=== PATIENT | female | born 1975 | race Caucasian/White ===

== ENCOUNTER 2021-03-22 03:21 | Inpatient (IN) | payer OTHER ==
[~2021-03-22] VITALS: Ht 160 cm; Wt 175.5 kg
[~2021-03-22 03:21] MED LIST: ASPIRIN CHEWABL81 MG PO; AUGMENTIN 875-1 EACH PO; BACITRACIN TOP; BACTRIM DS TAB1 EACH PO; CEFUROXIME500 MG PO; CLEOCIN HCL300 MG PO; CLINDAMYCIN HC300 MG PO; COUMADIN 5MG TAB5 MG PO; DOXYCYCLINE HY100 M2 PO; ELIQUIS 5 MG TAB5 MG PO; FEOSOL325 MG PO; GLUCOPHAGE 500500 MG PO; IMDUR ER TAB 3030 MG PO; IRON325 M1 PO; LASIX40 MG PO; LOPRESSOR 25 MG25 MG PO; LOPRESSOR 50 MG50 MG PO; PROVERA10 MG PO; SILVADENE20 GM TOP; VITAMIN C 500500 MG PO; WARFARIN SODIUM5 MG PO; ZAROXOLYN/DIULO5 MG PO
[2021-03-22 04:27] LABS: HEMOGLOBIN 12.6 gm/dl (12.3-15.3); RED BLOOD COUNT 4.15 M/UL (4.00-5.10); WHITE BLOOD COUNT 9.9 K/UL (4.5-11.0)
[2021-03-22 04:42] LABS: BUN/CREATININE RATIO 12 (0-10)
[2021-03-22] MEDS ORDERED: WARFARIN SODIUM3 MG PO (09:23)
[2021-03-23 06:18] LABS: HEMOGLOBIN 11.9 gm/dl (12.3-15.3); RED BLOOD COUNT 3.84 M/UL (4.00-5.10); WHITE BLOOD COUNT 10.2 K/UL (4.5-11.0)
[2021-03-24 03:04] LABS: HEMOGLOBIN 11.6 gm/dl (12.3-15.3); RED BLOOD COUNT 3.7 M/UL (4.00-5.10); WHITE BLOOD COUNT 8.2 K/UL (4.5-11.0)
[2021-03-25 04:55] LABS: HEMOGLOBIN 11.5 gm/dl (12.3-15.3); RED BLOOD COUNT 3.84 M/UL (4.00-5.10)
[2021-03-25 05:17] LABS: BUN/CREATININE RATIO 13 (0-10)
[2021-03-26 03:33] LABS: HEMOGLOBIN 11.2 gm/dl (12.3-15.3); RED BLOOD COUNT 3.59 M/UL (4.00-5.10)
[2021-03-26 03:39] LABS: WHITE BLOOD COUNT 6.2 K/UL (4.5-11.0)
[2021-03-26 04:18] LABS: BUN/CREATININE RATIO 12 (0-10)
[2021-03-26] MEDS ORDERED: DILTIAZEM 24HR120 M1 PO (14:21)
[2021-03-26] MEDS ORDERED: DIGOXIN125 MCG PO (14:21)
== END 2021-03-26 17:23 | disposition home or self-care (01) | DRG 291 ==
LOC: ER1 03:21 → CDU 06:41 → PROG CARE 06:41
PROVIDERS: Family Medicine; Internal Medicine; ADMIT Internal Medicine
PROC: B24BZZ4 Ultrasonography of Heart with Aorta, Transesophageal (ICD-10-PCS; principal; 2021-03-22)
DX: I11.0 Hypertensive heart disease with heart failure (principal); J96.01 Acute respiratory failure with hypoxia; J96.02 Acute respiratory failure with hypercapnia; J18.9 Pneumonia, unspecified organism; Z20.822 Contact with and (suspected) exposure to COVID-19; L03.116 Cellulitis of left lower limb; L03.115 Cellulitis of right lower limb; E87.3 Alkalosis; N39.0 Urinary tract infection, site not specified; I48.92 Unspecified atrial flutter; I48.21 Permanent atrial fibrillation; Z68.44 Body mass index [BMI] 60.0-69.9, adult; E66.01 Morbid (severe) obesity due to excess calories; I50.33 Acute on chronic diastolic (congestive) heart failure; I48.0 Paroxysmal atrial fibrillation; E78.5 Hyperlipidemia, unspecified; G47.33 Obstructive sleep apnea (adult) (pediatric); I34.0 Nonrheumatic mitral (valve) insufficiency; I27.20 Pulmonary hypertension, unspecified; K76.0 Fatty (change of) liver, not elsewhere classified; E11.9 Type 2 diabetes mellitus without complications; Z79.01 Long term (current) use of anticoagulants; Z86.711 Personal history of pulmonary embolism; Z86.718 Personal history of other venous thrombosis and embolism; Z80.1 Family history of malignant neoplasm of trachea, bronchus and lung; Z84.89 Family history of other specified conditions; Z88.1 Allergy status to other antibiotic agents; Z82.49 Family history of ischemic heart disease and other diseases of the circulatory system; Z82.3 Family history of stroke; Z83.3 Family history of diabetes mellitus
CPT/HCPCS: ECHO; 36415; 36600; 71045; 74150; 76705; 80048; 80053; 80202; 81001; 82550; 82553; 82803; 82962; 83036; 83735; 83874; 83880; 84439; 84443; 84484; 84703; 85025; 85027; 85379; 85610; 86140; 93005; 93306; 94640; 94660; 94664; 94760; 96365; 96372; 96374; 96375; 96376; 99285; G0378; J1160; J1335; J1650; J1940; J2543; J3370; J7070; U0002

== ENCOUNTER 2021-12-26 23:12 | Emergency (ER) | payer OTHER ==
[~2021-12-26 23:12] MED LIST changes: +DIGOXIN125 MCG PO; +DILTIAZEM 24HR120 M1 PO; +WARFARIN SODIUM3 MG PO
== END 2021-12-27 01:23 | disposition home or self-care (01) ==
LOC: ER1 23:12
DX: S81.812A Laceration without foreign body, left lower leg, initial encounter (principal); Z86.711 Personal history of pulmonary embolism; Z88.1 Allergy status to other antibiotic agents; W01.10XA Fall on same level from slipping, tripping and stumbling with subsequent striking against unspecified object, initial encounter
CPT/HCPCS: 12004; 99282

== ENCOUNTER 2022-01-02 12:04 | Emergency (ER) | payer OTHER ==
[2022-01-02 12:35] LABS: HEMOGLOBIN 13.2 gm/dl (12.3-15.3); RED BLOOD COUNT 4.3 M/UL (4.00-5.10); WHITE BLOOD COUNT 10.2 K/UL (4.5-11.0)
[2022-01-02 12:53] LABS: BUN/CREATININE RATIO 27 (0-10)
== END 2022-01-02 21:00 | disposition short-term general hospital (02) ==
LOC: ER1 12:04
PROVIDERS: Emergency Medicine
DX: I63.311 Cerebral infarction due to thrombosis of right middle cerebral artery (principal); E66.01 Morbid (severe) obesity due to excess calories; E11.9 Type 2 diabetes mellitus without complications; Z86.718 Personal history of other venous thrombosis and embolism
CPT/HCPCS: 70450; 70496; 70498; 80053; 82962; 85025; 85610; 85730; 93005; 99285; Q9967

== ENCOUNTER 2022-01-19 19:40 | Inpatient (IN) | payer OTHER ==
[~2022-01-19] VITALS: Ht 162.6 cm; Wt 176.6 kg
[~2022-01-19 19:40] MED LIST changes: -LOPRESSOR 50 MG50 MG PO; +METOPROLOL SUCC50 MG PO
[2022-01-19 20:37] LABS: RED BLOOD COUNT 1.01 M/UL (4.00-5.10); WHITE BLOOD COUNT 15.3 K/UL (4.5-11.0)
[2022-01-19 20:57] LABS: BUN/CREATININE RATIO 17 (0-10)
[2022-01-19 23:28] LABS: HEMOGLOBIN 4.4 gm/dl (12.3-15.3)
[2022-01-20 06:05] LABS: HEMOGLOBIN 6.4 gm/dl (12.3-15.3)
[2022-01-20] MEDS ORDERED: ATORVASTATIN CA80 MG PO (08:36)
[2022-01-20] MEDS ORDERED: ELIQUIS5 MG PO (08:36)
[2022-01-20] MEDS ORDERED: ASPIRIN81 MG PO (08:37)
[2022-01-20 09:23] LABS: HEMOGLOBIN 6.3 gm/dl (12.3-15.3)
[2022-01-20 16:13] LABS: HEMOGLOBIN 7.1 gm/dl (12.3-15.3)
[2022-01-21 03:42] LABS: WHITE BLOOD COUNT 12.8 K/UL (4.5-11.0)
[2022-01-21 03:44] LABS: RED BLOOD COUNT 2.3 M/UL (4.00-5.10)
[2022-01-21 03:45] LABS: HEMOGLOBIN 6.9 gm/dl (12.3-15.3)
[2022-01-21 04:19] LABS: BUN/CREATININE RATIO 19 (0-10)
[2022-01-21 11:41] LABS: HEMOGLOBIN 6.6 gm/dl (12.3-15.3)
[2022-01-22 03:14] LABS: BUN/CREATININE RATIO 16 (0-10)
[2022-01-22 03:17] LABS: HEMOGLOBIN 7.4 gm/dl (12.3-15.3); RED BLOOD COUNT 2.43 M/UL (4.00-5.10)
[2022-01-22 03:32] LABS: WHITE BLOOD COUNT 9.4 K/UL (4.5-11.0)
[2022-01-23 03:26] LABS: RED BLOOD COUNT 2.26 M/UL (4.00-5.10); WHITE BLOOD COUNT 8.4 K/UL (4.5-11.0)
[2022-01-23 03:56] LABS: HEMOGLOBIN 6.9 gm/dl (12.3-15.3)
[2022-01-23 04:27] LABS: BUN/CREATININE RATIO 14 (0-10)
[2022-01-23 06:47] LABS: HEMOGLOBIN 6.7 gm/dl (12.3-15.3)
[2022-01-23 14:51] LABS: HEMOGLOBIN 8.1 gm/dl (12.3-15.3)
[2022-01-24 05:06] LABS: HEMOGLOBIN 7.6 gm/dl (12.3-15.3); WHITE BLOOD COUNT 8.1 K/UL (4.5-11.0)
[2022-01-24 05:23] LABS: RED BLOOD COUNT 2.55 M/UL (4.00-5.10)
[2022-01-24 05:37] LABS: BUN/CREATININE RATIO 15 (0-10)
[2022-01-24 12:02] LABS: HEMOGLOBIN 7.2 gm/dl (12.3-15.3)
[2022-01-24 16:49] LABS: HEMOGLOBIN 7.5 gm/dl (12.3-15.3)
[2022-01-25 02:18] LABS: HEMOGLOBIN 7.1 gm/dl (12.3-15.3); RED BLOOD COUNT 2.35 M/UL (4.00-5.10); WHITE BLOOD COUNT 7.6 K/UL (4.5-11.0)
[2022-01-25 04:15] LABS: BUN/CREATININE RATIO 11 (0-10)
[2022-01-26 15:01] LABS: HEMOGLOBIN 8.4 gm/dl (12.3-15.3); WHITE BLOOD COUNT 7.6 K/UL (4.5-11.0)
[2022-01-26 15:05] LABS: RED BLOOD COUNT 2.83 M/UL (4.00-5.10)
[2022-01-26 15:26] LABS: BUN/CREATININE RATIO 18 (0-10)
[2022-01-27 07:03] LABS: BUN/CREATININE RATIO 17 (0-10)
[2022-01-27 07:32] LABS: RED BLOOD COUNT 2.67 M/UL (4.00-5.10); WHITE BLOOD COUNT 7.2 K/UL (4.5-11.0)
[2022-01-27 10:18] LABS: HEMOGLOBIN 8.3 gm/dl (12.3-15.3); RED BLOOD COUNT 2.76 M/UL (4.00-5.10); WHITE BLOOD COUNT 6.5 K/UL (4.5-11.0)
[2022-01-29 04:26] LABS: HEMOGLOBIN 7.7 gm/dl (12.3-15.3); RED BLOOD COUNT 2.56 M/UL (4.00-5.10); WHITE BLOOD COUNT 6.6 K/UL (4.5-11.0)
[2022-01-29 04:45] LABS: BUN/CREATININE RATIO 17 (0-10)
--- NOTE | 2022-01-29 06:13 | NUR ---
ATTEMPTED TO STRAIGHT CATH PATIENT PER MD. UNSUCCESSFUL. PATIENT REFUSES TO ALLOW US TO TRY AGAIN.
== END 2022-01-29 17:27 | disposition home or self-care (01) | DRG 744 ==
LOC: ER1 19:40 → CDU 21:19 → PROG CARE 21:19
PROVIDERS: Family Medicine; Internal Medicine; Internal Medicine Infectious Disease; Obstetrics & Gynecology; ADMIT Internal Medicine
PROC: 0UDB8ZZ Extraction of Endometrium, Via Natural or Artificial Opening Endoscopic (ICD-10-PCS; principal; 2022-01-20 13:00)
PROC: 30233N1 Transfusion of Nonautologous Red Blood Cells into Peripheral Vein, Percutaneous Approach (ICD-10-PCS; 2022-01-25)
DX: N92.0 Excessive and frequent menstruation with regular cycle (principal); D62 Acute posthemorrhagic anemia; E87.2 Acidosis; J96.10 Chronic respiratory failure, unspecified whether with hypoxia or hypercapnia; E66.2 Morbid (severe) obesity with alveolar hypoventilation; I50.32 Chronic diastolic (congestive) heart failure; Z68.44 Body mass index [BMI] 60.0-69.9, adult; Z86.73 Personal history of transient ischemic attack (TIA), and cerebral infarction without residual deficits; Z79.01 Long term (current) use of anticoagulants; Z86.711 Personal history of pulmonary embolism; Z88.1 Allergy status to other antibiotic agents; I48.0 Paroxysmal atrial fibrillation; I11.0 Hypertensive heart disease with heart failure
CPT/HCPCS: 36415; 80048; 80053; 81001; 82550; 82553; 82607; 82746; 83605; 83690; 84132; 84439; 84443; 84484; 84703; 85014; 85018; 85025; 85027; 85610; 85730; 86850; 86900; 86901; 86920; 99284; C9113; G0378; J1100; J1160; J1644; J2001; J2210; J2270; J2405; J2704; J3010; J7030; J7050; P9016